=== PATIENT | female | born 1995 | race African-American/Black ===

== ENCOUNTER 2023-02-20 14:37 | Emergency (ER) | payer MEDICAID, OTHER ==
[~2023-02-20] VITALS: Ht 170.2 cm; Wt 106.0 kg
[2023-02-20 14:40] VITALS: O2SAT 100
[2023-02-20] MEDS ORDERED: DEXAMETHASONE 10 MG/ML VIAL PO ONE (16:45)
[2023-02-20] MEDS ORDERED: ALBUTEROL (0.083%) 2.5MG/3ML NEB HHN ONE (16:45)
[2023-02-20] MEDS ORDERED: DEXAMETHASONE 10 MG/ML VIAL ONE (17:57)
[2023-02-20] MEDS ORDERED: DEXAMETHASONE 10 MG/ML VIAL PO NR (18:00)
[2023-02-20] MEDS ORDERED: GUAI120017 MT (18:02)
[2023-02-20 18:50] VITALS: PULSE 84; RESP 18
[2023-02-20] MEDS ORDERED: IBUP-2029 MT (19:00)
[2023-02-20] MEDS ORDERED: P50 MT (19:26)
[2023-02-20 19:31] VITALS: BP 124/87; PULSE 83; RESP 18; TEMP 97.9
== END 2023-02-20 19:32 | disposition home or self-care (01) ==
LOC: ER 14:37
DX: J06.9 Acute upper respiratory infection, unspecified (principal); R06.02 Shortness of breath; Z91.018 Allergy to other foods; Z91.040 Latex allergy status
CPT/HCPCS: 71045; 94640; 93005; 99283; J1100; Z7610 ×3